=== PATIENT | male | born 1945 | race Caucasian/White ===

== ENCOUNTER 2023-08-06 08:36 | Emergency (ER) | payer BC, OTHER ==
[2023-08-06 08:44] VITALS: BP 165/81; PULSE 59; RESP 20; TEMP 97.7; BMI 30.7
[2023-08-06] MEDS: SODIUM PHOSPHATE/NA BIPHOS 133 ML ENEMA PR ONE (09:41)
== END 2023-08-06 10:09 | disposition home or self-care (01) ==
LOC: FER 08:36
DX: N40.1 Benign prostatic hyperplasia with lower urinary tract symptoms (principal); R33.8 Other retention of urine; K56.41 Fecal impaction; R10.30 Lower abdominal pain, unspecified
CPT/HCPCS: 81003; 87086; 99283-25